=== PATIENT | female | born 1995 | race Two or more races ===

== ENCOUNTER 2018-04-10 08:19 | Emergency (ER) | payer SELFPAY ==
[2018-04-10] MEDS ORDERED: PROPARACAINE 0.5% OPHTH DROPS 15 ML EACHEYE STA (08:32)
[2018-04-10 08:33] VITALS: BP 136/86
--- NOTE | 2018-04-10 08:38 | ED Physician Documentation ---
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 She states this started in her left eye is much worse in her left eye she has more pain in the left eye but has redness in both eyes. She has had a lot of tearing she denies a foreign body sensation. She has removed her contacts and disposed of them. Review of Systems Constitutional: denies: Fever Eyes: reports: Photophobia, Irritation. denies: Loss of vision, Decreased vision, Discharge Ears: denies: Ear pain Nose: denies: Congestion Throat: denies: Sore throat Respiratory: denies: Cough PD PAST MEDICAL HISTORY - Past Medical History Past Medical History: No - Present Medications Home Medications: Ambulatory Orders Medication Instructions Recorded Confirmed Neomycin/Poly/Dex Ophth Drops 1 drops EACHEYE QID #1 bottle 04/10/18 [Maxitrol Ophth Drops] - Allergies Allergies/Adverse Reactions: Allergies Allergy/AdvReac Type Severity Reaction Status Date / Time No Known Drug Allergies Allergy Verified 04/10/18 08:29 - Social History Does the pt smoke?: No Smoking Status: Never smoker PD ED PE NORMAL - Vitals Vital signs reviewed: Yes (hypertensive) - General General: Alert and oriented X 3, No acute distress, Well developed/nourished - HEENT HEENT: Atraumatic, PERRL, EOMI, Other (There is marked injection of the sclera bilaterally and symetrically .There is flouroscein uptake in the left eye over the medial superior quadrant in a shallow ulceration. There is no cobblestoning of the lower conjunctival sac. ) - Neck Neck: Supple, no meningeal sign, No bony TTP - Respiratory Respiratory: No respiratory distress - Derm Derm: Normal color, Warm and dry, No rash - Extremities Extremities: No deformity, No edema - Neuro Neuro: No motor deficit, No sensory deficit Eye Opening: Spontaneous Motor: Obeys Commands Verbal: Oriented GCS Score: 15 - Psych Psych: Normal mood, Normal affect Results - Vitals Vitals: Vital Signs - 24 hr 04/10/ 08:29 Temperature 37.0 C Heart Rate 86 Respiratory 19 Rate Blood Pressure 136/86 H O2 Saturation 99 Oxygen O2 Source Room air PD MEDICAL DECISION MAKING - ED course Complexity details: considered differential, d/w patient ED course: 23-year-old female with marked conjunctival injection and a superficial ulceration to the left cornea has removed her contacts and disposed of them. She appears to have a contact related corneal ulcer. Maxitrol ophthalmic drops are instilled to both eyes. She is instructed to follow-up with her contact lens practitioner or Dr. Akhtar tomorrow if she is not markedly improved. Departure - Departure Disposition: 01 Home, Self Care Clinical Impression: Corneal ulcer of left eye Condition: Stable Instructions: ED Ulcer Cornea Follow-Up: Hector Akhtar MD [Provider Admit Priv/Credential] - Prescriptions: Neomycin/Poly/Dex Ophth Drops [Maxitrol Ophth Drops] 1 drops EACHEYE QID #1 bottle Comments: Today it appears you have a corneal ulcer related to your contact lens. Follow up tomorrow for re-exam by the opthamologist. Don't use your contacts and use the drops 4 times per day. Forms: Activity restrictions
[2018-04-10] MEDS ORDERED: NEOMYCIN/POLYMYX/DEXAMETH OPHTH DROPS 5 ML EACHEYE STA (08:48)
== END 2018-04-10 09:03 | disposition home or self-care (01) ==
LOC: ED 08:19
DX: H16.002 Unspecified corneal ulcer, left eye (principal)
CPT/HCPCS: 99283; J3490